=== PATIENT | male | born 1955 | race Caucasian/White ===

== ENCOUNTER 2016-11-14 06:03 | Day surgery (SDC) | payer MEDICARE, OTHER ==
[~2016-11-14] VITALS: Ht 200.7 cm; Wt 119.3 kg
[~2016-11-14 06:03] MED LIST: IBUP200C PO; LISI1TAB9 PO; MULT-1018 PO; TAMS0.4C98 PO; vitamin c
[2016-11-14] MEDS ORDERED: fentaNYL-PF 50 mCg/mL 2 mL Inj ONE (06:04)
[2016-11-14 06:42] VITALS: BP 114/71; PULSE 77; RESP 16; O2SAT 94
[2016-11-14] MEDS: Lactated Ringer's 1,000 ML IV SCH ×2 (06:54→07:43)
[2016-11-14] MEDS ORDERED: HYDROcodone-APAP 5-325 mg Tablet PO PRN (07:25)
--- NOTE | 2016-11-14 07:51 | PCM.HPANE ---
Patient Data Surgeon Admitting Provider: Attending Provider:Juan Manuel Turner DO Primary Care Physician:Jannie Oquendo MD Other Provider:Shon Sheffield Anesthesia Reason for Visit Right Carpal Tunnel Syndrome Ht/WT & BMI Height (Feet): 6 Height (Inches): 7 Weight (Kilograms): 119.3 Body Mass Index 29.00 Allergies Coded Allergies: Penicillins (Verified Allergy, Unknown, hives, 11/08/16) erythromycin base (Verified Allergy, Unknown, acute liver failure, 11/08/16 ) Uncoded Allergies: PEANUTS (Allergy, Unknown, vomiting, 11/08/16) THIMEROSOL (Allergy, Unknown, redness, swelling, pain, 11/08/16) Past Anesthesia History Anesthesia History: Positive for:: Anesthesia Reactions (spinal headache, ), Denies:: Abnormal Airway, Difficult Intubation, Fam Anesthesia Reaction Diabetes History Hx Diabetes?: No MRSA MRSA: No Medications Blood Thinner: Aspirin Hypertension Medication: Yes Home Meds Incl Beta Pam: No Reported Medications [vitamin c] No Conflict CheckUnknown Dose DAILY 11/08/16 Multivitamin (Multi Vitamin Daily)1 Each Tablet1 Each PO DAILY 30 Days Ref 0 11/08/16 Lisinopril / HCTZ 20-12.5 mg 1 Each Tablet1 Each PO DAILY Ref 0 11/08/16 Ibuprofen 200 Mg [id number] Mg PO QID PRN For Pain Ref 0 11/08/16 Tamsulosin (Flomax)0.4 Mg Capsule0.4 Mg PO DAILY Ref 0 11/08/16 History HEENT History: Positive for:: Hearing Problem Denies:: Abnormal Airway Cataracts Difficult Intubation Dysphagia Glaucoma Sinus Problem TMJ Teeth Condition: Missing Teeth Hx of Heart Problems?: Yes Cardiovascular History: Positive for:: Hypertension Denies:: AICD Chest Pain Congestive Heart Failure Coronary Artery Disease Edema Heart Murmur Irregular Heartbeat Pacemaker Peripheral Vascular Hx of Respiratory Problem?: Yes Respiratory History: Positive for:: Use of C-PAP Machine Denies:: Asthma COPD Emphysema Oxygen Administration Pneumonia Tuberculosis Use of Inhalers / NEBS Hx Neurologic Problems?: No Neurological History: Denies:: CVA Dementia Dizziness Headaches Multiple Sclerosis Parkinson's Disease Seizures TIA Hx of GI Problems?: Yes Gastrointestinal History: Positive for:: Liver Disease (acute liver failure r/ t emycin 1997) Denies:: Cirrhosis Gall Bladder Disease Gastroesphageal Reflux Gastrointestinal Bleeding Heartburn Hepatitis Hiatal Hernia Rectal Bleeding Hx of Problems?: No Genitourinary History: Denies:: Kidney Stones Urinary Tract Infection Male Hx: Positive for:: Prostate Problems (BPH) Skin History: Denies:: History Skin Disorders? Pressure Ulcers Hx Musculoskeletal Problems?: Yes Musculoskeletal History: Positive for:: Joint Replacement (right knee ) Musculoskeletal Trauma (right carpal tunnel current admission problem) Osteoarthritis Denies:: Fibromyalgia Systemic Lupus Hx of Psycho/Social Problems?: No Psycho Social History: Denies:: Anxiety Hx Depression Hx Surgeries?: Yes (multiple shoulder, tendon/lig repair left, total right knee ) Hx Any Other Health Problems?: Yes Other History: Denies:: Cancer Thyroid Disease History Blood Transfusions: Positive for:: Accept Blood Products? Denies:: Blood Transfusions Hx Diabetes: No Hx Alcohol Use: NoHx Substance Use: NoHave You Smoked inLast 12 mo: No (1992) Stop/Bang P-Blood Pressure: treated: Yes B- Body Mass Index > 35 kg/m2: No A- Age over 50: Yes N- Neck Large Circumference: No G- Gender Male: Yes Risk Assessment Category Category 1A: Patient has history of documented sleep apnea, and HAS NOT received any narcotic, sedative or anesthesia administration during this stay. Category 1B: Patient has history of documented sleep apnea, and HAS received any narcotic , sedative or anesthesia administration during this stay Category 2: Patient has SUSPECTED Obstructive Sleep Apnea, and HAS received any narcotic , sedative or anesthesia administration during this stay. Category 3: Patient has SUSPECTED Obstructive Sleep Apnea and HAS NOT received narcotic, sedative or anesthesia administration during this stay. Category 4: Outpatient in Procedural Areas with known sleep apnea or who screen positive for High Risk via the STOP/BANG questionnaire. Exam Exam Vital Signs Vital Signs Date Time Temp Pulse Resp B/P Pulse Ox O2 Delivery O2 Flow Rate FiO2 11/14/16 06:42 36.4 77 16 114/71 94 Room Air General Appearance: Alert, Oriented X3, Cooperative, No Acute Distress HEENT/AIRWAY: MP 1 Lungs: Normal Air Movement Heart: Regular Rate/Rhythm Meds/Labs/Diagnostics Admission Meds Current Medications Lactated Ringer's (Lr) 1,000 ml @ 120 mls/hr [id number] IV Last administered on t 07:43; Start 11/14/16 at 05:00; Stop 11/14/16 at 13:19 Plan Impression Patient chart reviewed, patient interviewed and anesthestic plan with risks, benefits, and alternatives discussed, and informed consent obtained. NPO Status: [id number] ASA Physical Status: ASA3 Severe Disease Anesthetic Plan: Regional Block Bene/Risks/Altern/Consents: Yes HP Complete Prior to Induction: Yes Sara Swanson DO Nov 14, 2016 07:51
[2016-11-14] MEDS ORDERED: Lidocaine 1%-Epi 1:100,000 20 mL Inj INFILTRATE ONE (08:08)
[2016-11-14 08:39] VITALS: BP 136/78; PULSE 77; RESP 16; O2SAT 98
--- NOTE | 2016-11-14 08:51 | PCM.ANEP1 ---
Post Anesthesia Phase 1 PACU Phase 1 Assessment Vital Signs Vital Signs Date Time Temp Pulse Resp B/P Pulse Ox O2 Delivery O2 Flow Rate FiO2 11/14/16 08:39 36.2 77 16 136/78 98 Room Air 11/14/16 06:42 36.4 77 16 114/71 94 Room Air Anesthetic Administered: Regional Block Level of Alertness: Awake, talking MARTINEZ's with Equal Strength: Yes Pain: No Nausea or Vomiting: No Oxygen Delivery: Room Air Lungs: Normal Air Movement Sara Swanson DO Nov 14, 2016 08:51
--- NOTE | 2016-11-14 08:51 | PCM.ANEP2 ---
Post Anesthesia Evaluation ASA/CMS Post Anesthesia VS in Patient's Normal Range?: Yes Resp Stable; Airway Patent?: Yes CV Function & Hydration Stable: Yes Mental Status Recovered?: Yes Pain control Satisfactory?: Yes N/V Control Satisfactory?: Yes Sara Swanson DO Nov 14, 2016 08:51
[2016-11-14 09:11] VITALS: BP 124/71; PULSE 74; RESP 16; O2SAT 94
--- NOTE | 2016-11-14 13:48 | OP ---
[address] [address] OPERATIVE REPORT PATIENT: PETRONA MORALES : 1955 MR#: [id number] ADMIT: 11/14/2016 JOB ID: [id number] DATE OF SURGERY: 11/14/2016 PREOPERATIVE DIAGNOSIS(ES): Right carpal tunnel syndrome. POSTOPERATIVE DIAGNOSIS(ES): Right carpal tunnel syndrome. PROCEDURE: Right open carpal tunnel release. SURGEON: Juan Manuel Turner DO ANESTHESIA: Donaldo block. HISTORY: The patient is a 60-year-old male with longstanding history of numbness and tingling to his right hand in the median nerve distribution. He failed conservative treatment with nighttime bracing and demonstrated electrodiagnostic findings of carpal tunnel syndrome. I discussed the risks, benefits, alternatives, and indications to proceed with a right open carpal tunnel release. He understood the risks include, but are not limited to, neurovascular injury, tendon injury, infection, failure to resolve the patient's preoperative symptoms, stiffness, persistent pain, all of which may require further intervention. The patient had all questions answered. Consent was signed and placed in the chart. PROCEDURE IN DETAIL: The patient was brought to the operative suite and placed supine on the operating table. Surgical time-out was performed. Everyone in the room was in agreement. After appropriate anesthesia was obtained, the right arm was then prepped and draped in sterile fashion. A 2 cm longitudinal incision was made in line with the radial aspect of the ring finger and the ulnar aspect of the palmaris longus. The incision was kept distal to the wrist crease and proximal to Cardenas's cardinal line. Subcutaneous tissues were dissected and bipolar electrocautery utilized to maintain hemostasis throughout the procedure. The palmar fascia was first identified and incised longitudinally in line with the skin incision, followed by exposure of the underlying transverse carpal ligament. The transverse carpal ligament was then released in its entirety to include the distal extent of the antebrachial fascia. Copious irrigation was then performed followed by closure of skin with 5-0 nylon in simple interrupted fashion. The patient was then placed in a bulky soft dressing. ESTIMATED BLOOD LOSS: Less than 1 cc. COMPLICATIONS: None. DISPOSITION: The patient tolerated the procedure well. Anesthesia was reversed. The patient was transferred back to recovery. POSTOPERATIVE PLAN: The patient will follow up in the office in two weeks. We will remove the patient's sutures at that time and have him start working on range of motion and scar mobilization.
== END 2016-11-14 23:59 | disposition home or self-care (01) ==
LOC: SAS 06:03
PROVIDERS: ATTEND Orthopaedic Surgery
DX: G56.03 Carpal tunnel syndrome, bilateral upper limbs (principal); I10 Essential (primary) hypertension; G47.30 Sleep apnea, unspecified
CPT/HCPCS: 64721; J2250; J3010; J7120